=== PATIENT | female | born 1990 | race Caucasian/White ===

== ENCOUNTER 2018-01-15 13:43 | Emergency (ER) | payer MEDICAID ==
[~2018-01-15 13:43] MED LIST: IBUP-232 PO
[2018-01-15 14:00] VITALS: BP 146/66; PULSE 93; RESP 18; TEMP 98.8; O2SAT 99
--- NOTE | 2018-01-15 14:36 | PD ---
HPI . Abdominal pain Chief Complaint: Related Problem Time Seen by Provider: 14:17 Travel History International Travel<30 days: No Contact w/Intl Traveler<30days: No Traveled to known affect area: No History of Present Illness HPI Patient presents with chief complaint of abdominal pain. She works in healthcare. She states that a patient was falling yesterday and she basically caught the patient. She has had abdominal pain since that time. The pain is exacerbated by movement. It has been unrelieved by Tylenol. Pain is rated 5/ 10. She was sent here by her employer for evaluation because she is 18 weeks . She denies any vaginal bleeding or drainage. She has not yet felt the baby move. She has not yet had any care. [facility] Past Medical History Medical History: Denies Significant Hx Diminished Hearing: No Immunizations Current: Yes Tetanus Vaccination: < 5 Years Influenza Vaccination: Yes ?: LMP: SEP 2017 : 3 Para: 2 Past Surgical History Surgical History: No Previous Surgery Social History Alcohol Use: No Tobacco Use: No Substance Use: No Allergies-Medications (Allergen,Severity, Reaction): Coded Allergies: No Known Allergies (Verified Adverse Reaction, Unknown, 01/15/18) Reported Meds & Prescriptions Reported Meds & Active Scripts Active No Active Prescriptions or Reported Medications Review of Systems Except as stated in HPI: all other systems reviewed are Neg Physical Exam Narrative GENERAL: Awake and alert and in no acute distress. SKIN: Warm and dry. HEAD: Normocephalic/atraumatic. EYES: Pupils are equal. Extraocular movements are intact. NECK: Normal range of motion. CARDIOVASCULAR: Regular rate and rhythm. RESPIRATORY: Nonlabored respirations. ABDOMEN: Abdomen is diffusely tender to palpation but no guarding or rebound. Pain is exacerbated by doing a sit up. MUSCULOSKELETAL: Atraumatic. NEUROLOGICAL: Nonfocal. PSYCHIATRIC: Appropriate mood and affect. Data Data Last Documented VS Vital Signs Date Time Temp Pulse Resp B/P (MAP) Pulse Ox O2 Delivery O2 Flow Rate FiO2 01/15/18 14:00 98.8 93 18 146/66 (92) 99 Orders Orders Ed Poc Ultrasound (01/15/18 14:24) Ed Discharge Order (01/15/18 14:33) MDM Medical Decision Making Medical Screen Exam Complete: Yes Emergency Medical Condition: Yes Differential Diagnosis Differential diagnosis of abdominal pain includes but is not limited to gastritis, pancreatitis, hepatitis, gastroenteritis, constipation, urinary retention, peptic ulcer disease, diverticulitis or appendicitis Narrative Course This patient presents for the evaluation of diffuse abdominal pain after catching a patient at a local group home yesterday. She was sent here for evaluation because she is . Her abdominal exam is compatible with an abdominal wall strain. Procedures Procedure Narrative Emergency Department Pelvic ultrasound was performed with patient consent. The curvilinear probe was used in the transverse and sagittal views within the suprapubic region revealing positive intrauterine . There is good heart activity and normal movement. Diagnosis Primary Impression: Intrauterine Additional Impression: Abdominal wall strain Qualified Codes: S39.011A - Strain of muscle, fascia and tendon of abdomen, initial encounter Patient Instructions: General Instructions, Muscle Strain (ED) Departure Forms: Tests/Procedures Scripts No Active Prescriptions or Reported Meds Disposition: 01 DISCHARGE HOME Condition: Stable Josephine Perez MD January 15, 2018 14:36
== END 2018-01-15 15:06 | disposition home or self-care (01) ==
LOC: NEPD 13:43
DX: O99.89 Other specified diseases and conditions complicating pregnancy, childbirth and the puerperium (principal); S39.011A Strain of muscle, fascia and tendon of abdomen, initial encounter; X58.XXXA Exposure to other specified factors, initial encounter; Y93.F9 Activity, other caregiving; Y99.0 Civilian activity done for income or pay; Z3A.18 18 weeks gestation of pregnancy
CPT/HCPCS: 99281